=== PATIENT | male | born 1960 | race Caucasian/White ===

== ENCOUNTER 2023-01-08 11:03 | Outpatient (AMB) | payer MEDICARE, SELFPAY ==
--- NOTE | 2022-12-01 09:01 | A.OFFVIS_ITS ---
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
--- NOTE | 2022-12-01 09:01 | MHC.OFFVIS ---
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
--- NOTE | 2023-01-08 11:30 | A.OFFVIS_ITS ---
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 It started about 3 years ago and has 6-10 episodes a year.Each episode lasts about 3-4 minutes.No headache.He feels as if his eyes are crossing but none of his friends have noticed. He sees the images side by side - closing one eye helps but not sure it eliminates it completely. He denies eye pain . But has blurry vision and has tinnitus. The tinnitus can happen even without double vision - more frequent , daily and can last hrs. He recently had hearing test and it was normal.The tinnitus started many years ago. He denies vertigo or recent head injury.He denies nay eyelid drooping, facial numbness, dysarthria, dusphagia etc. [facility] Medical History (Updated 01/08/23 @ 12:02 by Palma Meléndez MD) Tinnitus Diplopia Hypothyroidism Diverticulosis Colonic polyp Hyperlipidemia Surgical History H/O wrist surgery H/O vasectomy H/O hernia repair Hx of colonoscopy Family History Father Pancreatic cancer Diabetes Mother Breast CA Social History Alcohol intake: current Patient Tobacco Use Status: Former Tobacco user Substance Use Type: Marijuana Review of Systems Const Reports no additional complaints Eyes Reports blurry vision and Reports diplopia ENT Reports disequilibrium Musc Reports back pain Neuro Reports disequilibrium Physical Exam Vital Signs: Last Vital Signs Pulse 56 01/08/23 11:31 BP 130/90 H 01/08/23 11:31 Pulse Ox 97 01/08/23 11:31 Oxygen Delivery Method Room Air 01/08/23 11:31 BMI result Body Mass Index 30.7 Const General: cooperative, healthy appearing, comfortable, no acute distress and well developed Nutritional Appearance: overweight Orientation/consciousness: patient oriented x3 Eyes Pupils: Equal, round and reactive pupils present Neuro General: patient oriented x3, tone normal, moves all extremities and no focal motor deficits Cranial nerves: Yes Facial sensation intact/muscles of mastication intact, Yes Equal, round and reactive pupils present, Yes Normal accommodation reflex present, Yes Bilaterally intact EOM present, Yes Nystagmus not present, Yes Normal facial strength present, Yes Midline tongue present, Yes Symmetric palate elevation present and Yes Ability to bilaterally elevate shoulders present Cognition (Neuro): normal cognition Gait exam (Neuro): Normal gait present Motor exam (neuro): 5/5 motor strength present throughout and Normal motor muscle tone present throughout Deep tendon reflexes (DTR's): Right triceps reflex intensity grade: 1+, Left triceps reflex intensity grade: 1+, Rt Biceps (C5, C6): 1+, Left biceps reflex intensity grade: 1+, Right brachioradialis reflex intensity grade: 1+, Left brachioradialis reflex intensity grade: 1+, Right patellar reflex intensity grade: 1+ and Left patellar reflex intensity grade: 1+ Coordination: [id number] test normal Psych Appearance: grossly normal Assessment & Plan Assessment & Plan (1) Diplopia: Code(s): H53.2 - Diplopia (2) Tinnitus: Code(s): H93.19 - Tinnitus, unspecified ear Plan MRI brain to evaluate Ophthalmology evaluation Orders: Orders MR head/brain wo con Today H53.2 - Diplopia Medications: New lorazepam 1 tab 60min prior to test and repeat in 45 minutes orally bedtime PRN; 2 tabs 0RF anxiety Coding Level of Care Code New Pt Level 4 (19958) Diagnoses Diplopia H53.2 Tinnitus H93.19
[2023-01-08 11:31] VITALS: BP 130/90; PULSE 56; O2SAT 97; BMI 30.7
== END 2023-01-08 11:59 | disposition home or self-care (01) ==
PROVIDERS: Visit Provider Psychiatry & Neurology Neurology
DX: H53.2 Diplopia (principal); H93.19 Tinnitus, unspecified ear
CPT/HCPCS: 99204

== ENCOUNTER → 2023-01-08 11:03 | Outpatient (BNVA) | payer MEDICARE, SELFPAY | PROVIDERS: Visit Provider Psychiatry & Neurology Neurology ==